=== PATIENT | male | born 1995 | race Caucasian/White ===

== ENCOUNTER 2018-01-20 17:16 | Inpatient (IN) | payer OTHER ==
[~2018-01-20] VITALS: Ht 177.8 cm; Wt 56.0 kg
--- OUTSIDE RECORDS SUMMARY | 2018-01-20 17:19 | XMS REPORT | Clinical Summary ---
Author Author [facility] Address Unknown Phone Unavailable Care Team Providers Care Game Protector Name Role Phone Tee Hines MD PCP Allergies No Known Allergies Medications End Date Status Medication Sig Dispensed Refills Start Date Active budesonide EC (ENTOCORT Take 9 mg by 0 EC) 3 mg 24 hr capsule mouth every morning. Active escitalopram (LEXAPRO) 10 Take 10 mg by 0 MG tablet mouth daily. Active adalimumab (HUMIRA PEN Inject 40 mg 0 [facility] START) 40 under the mg/0.8 mL pen injector skin every 14 kit injection pen kit (fourteen) days. Active Problems Problem Noted Date Crohn's colitis, with rectal bleeding 01/06/2018 Bloody diarrhea 05/13/2016 Encounters Care Team Description Date Type [facility]ty [facility] Crohn's colitis, with rectal bleeding (HCC) (Primary Dx) 01/06/2018 [facility] General Internal Medicine - Encounter 01/08/2018 Jimmy Hollis MD Chronic ulcerative enterocolitis with complication (Primary Dx) 02/14/2017 Lab Lab after 01/19/2017 Immunizations Name Dates Previously Given Next Due FLUCELVAX QUAD PF (0.5mL 01/08/2018 syringe) Social History Date Tobacco Use Types Packs/Day Years Used Never Smoker Smokeless Tobacco: Never Used Tobacco Cessation: Counseling Given: No Alcohol Use Drinks/Week oz/Week Comments No Sex Assigned at Date Recorded Not on file Industry Job Start Date Occupation Not on file Not on file Not on file Travel End Travel History Travel Start No recent travel history available. Last Filed Vital Signs Time Taken Vital Sign Reading 01/08/2018 7:38 AM [employer] [employer] Blood Pressure 105/59 01/08/2018 7:38 AM [employer] [employer] Pulse 64 01/08/2018 7:38 AM [employer] [employer] Temperature 36.2 C (97.2 F) 01/08/2018 7:38 AM [employer] [employer] Respiratory Rate 17 01/08/2018 7:38 AM [employer] [employer] Oxygen Saturation 98% - Inhaled Oxygen - Concentration 01/06/2018 8:53 PM [employer] [employer] Weight 54.8 kg (120 lb 14.4 oz) 01/06/2018 8:53 PM [employer] [employer] Height 177.8 cm (5' 10") 01/06/2018 8:53 PM [employer] [employer] Body Mass Index 17.35 Plan of Treatment Health Maintenance Due Date Last Done Comments MMR VACCINES (1 of - 1998 Standard series) VARICELLA VACCINES (1 of 2010 2 - 2-dose adolescent series) MENINGOCOCCAL VACCINE (1 2013 - 2-dose series) INFLUENZA VACCINE Completed 01/08/2018 HEPATITIS B VACCINES Aged Out No longer eligible based on patient's age to complete this topic IPV VACCINES Aged Out No longer eligible based on patient's age to complete this topic Procedures Comments Procedure Name Priority Date/Time Associated Diagnosis C-REACTIVE PROTEIN Routine 01/08/2018 1:35 PM [facility] SEDIMENTATION RATE Routine 01/08/2018 1:35 PM [employer] [employer] [employer] ESTIMATED GFR Routine 01/07/2018 4:00 AM [employer] [employer] COMPREHENSIVE METABOLIC Routine 01/07/2018 PANEL 4:00 AM [employer] [employer] HC COMPLETE BLD COUNT Routine 01/07/2018 W/AUTO DIFF 4:00 AM [employer] [employer] [facility] GASTROINTESTINAL PANEL Routine 01/06/2018 7:30 PM [employer] [employer] ESTIMATED GFR STAT 01/06/2018 4:03 PM [employer] [employer] LIPASE LEVEL STAT 01/06/2018 4:03 PM [employer] [employer] COMPREHENSIVE METABOLIC STAT 01/06/2018 PANEL 4:03 PM [employer] [employer] TYPE AND SCREEN Routine 01/06/2018 4:03 PM [employer] [employer] PROTHROMBIN TIME WITH INR STAT 01/06/2018 4:03 PM [employer] [employer] HC COMPLETE BLD COUNT STAT 01/06/2018 W/AUTO DIFF 4:03 PM [employer] [employer] [employer] TB T-SPOT Routine 02/14/2017 Chronic ulcerative 12:17 PM [employer] [employer] enterocolitis with complication after 01/19/2017 Results * Sedimentation rate (01/08/2018 1:35 PM SENIOR DIRECTOR [employer]) Sedimentation rate 5 0 - 10 mm/hr [facility] Specimen Blood Performing Organization Address City/[facility] Phone Number [facility] [place] [address] PATHOLOG[address] * C-reactive protein (01/08/2018 1:35 PM SENIOR DIRECT[employer]) CRP <0.30 0.00 - 0.50 mg/dL [facility] Specimen Plasma specimen Performing Organization Address [facility] Phone Number [facility] [place] [address] PATHOLOGY [address] * Estimated GFR (01/07/2018 4:00 AM SENIOR DIRECTOR [employer]IGHT) Only the most recent of 2 results within the time period is included. Estimated GFR >=90 mL/min/1.73 m2 [facility] Comment: HOSPITAL CatergoryUnitsInte rpretation G1 >=90 Normal or high G2 60-89Mildly decreased [id number] Mildly to moderately decreased F3l12-56 Moderately to severely decreased G4 15-29Severely decreased G5 <15Kidney failure The eGFR was calculated using the Chronic Kidney Disease Epidemiology Collaboration (CKD-EPI) equation. Interpretation is based on recommendations of the National Kidney Foundation-Kidney Disease Outcomes Quality Initiative (NKF-KDOQI) published in 2014. Specimen Plasma specimen Performing Organization Address [facility] Phone Number [facility] [address] PATHOLOGY AND [facility] MEDICINE [address] * CBC with platelet and differential (01/07/2018 4:00 AM SENIOR DIRECTOR [employer]IGHT) Only the most recent of 2 results within the time period is included. WBC 7.51 4.50 - 11.00 k/uL [facility] RBC 3.81 (L) 4.40 - 6.00 m/uL [facility] HGB 11.7 (L)Comment: Results 14.0 - 18.0 g/dL [facility] double checked. HOSPITAL HCT 34.9 (L) 41.0 - 51.0 % [facility] MCV 91.6 82.0 - 100.[address] [facility] MCH 30.7 27.0 - 34.[address] [facility] MCHC 33.5 31.0 - 37.0 g/dL [facility] RDW - SD 42.4 37.0 - 55.[address] [facility] MPV 10.1 8.8 - 13.[address] [facility] Platelet count 273 150 - 400 k/uL [facility] Nucleated RBC 0.00 /[address] [facility] Neutrophils 57.4 39.0 - 69.0 % [facility] Lymphocytes 26.9 25.0 - 45.0 % [facility] Monocytes 13.2 (H) 0.0 - 10.0 % [facility] Eosinophils 1.7 0.0 - 5.0 % [facility] Basophils 0.5 0.0 - 1.0 % [facility] Immature granulocytes 0.3Comment: "Immature 0.0 - 1.0 % [facility] granulocytes" (promyelocytes, HOSPITAL myelocytes, metamyelocytes) Specimen Blood Performing Organization Address City/State/Zipcode Phone Number [facility] DEPARTMENT OF [address] [place] [address] PATHOLOGY AND GENOMIC MEDICINE [address] * Comprehensive metabolic panel (01/07/2018 4:00 AM SENIOR DIRECTOR [employer]) Only the most recent of 2 results within the time period is included. Sodium 142 135 - 148 mEq/L [facility] Potassium 3.7 3.5 - 5.0 mEq/L [facility] Chloride 105 98 - 112 mEq/L [facility] CO2 22 (L) 24 - 31 mEq/L [facility] Anion gap 15@ANIO 7 - 15 mEq/L [facility] BUN 8 6 - 20 mg/dL [facility] Creatinine 0.72 0.70 - 1.20 mg/dL [facility] Glucose 77 65 - 99 mg/dL [facility] Calcium 9.0 8.3 - 10.2 mg/dL [facility] Protein 6.3 6.3 - 8.3 g/dL [facility] Comment: HOSPITAL [place] 4.6-7.0 g/dL 1 week 4.4-7.6 g/dL 7 months-1year 5.1-7.3 g/dL 1-2 years5.6-7 .5 g/dL >3 years6.0-8 .0 g/dL 18-150 6.3-8.3 g/dL Albumin 3.5 3.5 - 5.0 g/dL [facility] A/G ratio 1.2 0.7 - 3.[address] [facility] Alkaline phosphatase 59 40 - 129 U/L [facility] AST 15 10 - 50 U/L [facility] ALT 7 5 - 50 U/L [facility] Total bilirubin 0.5 0.0 - 1.2 mg/dL [facility] Specimen Plasma specimen Performing Organization Address [facility] Phone Number [facility] [address] PATHOLOGY AND GENOMIC MEDICINE [address] * Gastrointestinal panel (01/06/2018 7:30 PM SENIOR [employer]) Gastrointestinal panel Negative for all pathogens [facility] tested: HOSPITAL Negative for Salmonella Negative for Campylobacter Negative for Diarrheagenic E coli/Shigella Negative for Shiga-like toxin-producing E coli Negative for Plesiomonas shigelloides Negative for Yersinia enterocolitica Negative for Vibrio species Negative for Clostridium difficile (Toxin A/B) Negative for Cryptosporidium Negative for Giardia lamblia Negative for Cyclospora cayeteanensis Negative for Entamoeba histolytica Negative for Adenovirus F 40/41 Negative for Astrovirus Negative for Norovirus GI/GII Negative for Rotavirus A Negative for Sapovirus Negative for Clostridium difficile toxin Negative for E coli 0157 This real-time PCR assay detects the presence of nucleic acids (RNA or DNA) for the gastrointestinal pathogens listed. A result of "Not-detected" does not exclude the possibility of the presence of one or more pathogens at concentrations less than the detectable limits of the assay. Comment: Specimen Information Specimen Source: Stool Specimen Site: Nonpreserved Specimen Stool - Nonpreserved Performing Organization Address City/[facility] Hospital[facility] Phone Number [facility] DEPARTMENT [place] [phone] PATHOLOGY AND GENOMIC MEDICINE [facility] [address] [place] [address] HOSPITAL * Prothrombin time with INR (01/06/2018 4:03 PM SENIOR DIRECTOR [employer]) Prothrombin time 13.9 11.5 - 14.5 sec [facility] DEPARTMENT OF PATHOLOGY AND GENOMIC MEDICINE INR 1.1 [facility] DEPARTMENT OF Comment: PATHOLOGY AND The International Normalized GENOMIC MEDICINE Ratio (INR) is a therapeutic monitoring tool for patients who are stable on oral anticoagulant therapy. An INR of 2.0-3.0 is suggested for deep vein thrombosis/pulmonary embolism. Specimen Blood Performing Organization Address City/State/Zipcode Phone Number [facility] [address] PATHOLOGY AND GENOMIC MEDICINE * Type and screen (01/06/2018 4:03 PM SENIOR DIRECTOR [employer]) ABO grouping A [facility] DEPARTMENT OF PATHOLOGY AND GENOMIC MEDICINE Rh type NEG [facility] DEPARTMENT OF PATHOLOGY AND GENOMIC MEDICINE Antibody screen (gel) NEG [facility] DEPARTMENT OF PATHOLOGY AND GENOMIC MEDICINE Specimen Blood Performing Organization Address City/[facility] Phone Number [facility] [address] PATHOLOGY AND GENOMIC MEDICINE * Lipase level (01/06/2018 4:03 PM SENIOR DIRECT[employer]) Lipase 18 13 - 60 U/L [facility] DEPARTMENT OF PATHOLOGY AND GENOMIC MEDICINE Specimen Plasma specimen Performing Organization Address City/[facility] [place] [address] PATHOLOGY AND GENOMIC MEDICINE * TB T-SPOT (02/14/2017 12:17 PM SENIOR DIRECTOR [employer]) TB T-SPOT see note [facility] Comment: T-SPOT TUBERCULOSIS Nil Control: 0 Panel A: 0 Panel B: 2 Positive Control: TMTC Result:NEGATIVE NOTE: TMTC INDICATES TOO MANY SPOTS TO COUNT SAT INDICATES THE WELL WAS SATURATED RESULTS INTERPRETATION: RESULTS ARE NEGATIVE WHEN (PANEL A-NIL) OR (PANEL B-NIL) <=4 SPOTS, INCLUDING VALUES LESS THAN ZERO. RESULTS ARE POSITIVE WHEN (PANEL A-NIL) OR (PANEL B-NIL) >=8 SPOTS RESULTS ARE BORDERELINE WHEN EITHER (PANEL A-NIL) OR (PANEL B-NIL)=5,6,0R 7. THE TEST IS INVALID WHEN EITHER OF THE FOLLOWING CONDITIONS IS MET: 1.) THE NIL CONTROL HAS >10 SPOTS 2.) THE MITOGEN (POSITIVE CONTROL) HAS <20 SPOTS AND BOTH (PANEL A-NIL) AND (PANEL B-NIL) <=4 SPOTS. M. TUBERCULOSIS INFECTION UNLIKELY, BUT CANNOT BE EXCLUDED ESPECIALLY WHEN: 1. ANY ILLNESS IS CONSISTENT WITH TB DISEASE. 2. LIKELIHOOD OF PROGRESSION TO DISEASE (e.g. DUE TO IMMUNOSUPPRESSION) IS INCREASED. LIMITATIONS: DIAGNOSING OR EXCLUDING TUBERCULOSIS DISEASE, AND ASSESSING THE PROBABILITY OF LTBI, REQUIRES A COMBINATION OF EPIDEMIOLOGICAL, HISTORICAL, MEDICAL, AND DIAGNOSTIC FINDINGS THAT SHOULD BE TAKEN INTO ACCOUNT WHEN INTERPRETING T-SPOT.TB REFER TO THE MOST RECENT CDC GUIDANCE (HTTP: //[email or web address].GOV/[email or web address]/TB) FOR DETAILED RECOMMENDATIONS ABOUT DIAGNOSING TB INFECTION (INCLUDING DISEASE) AND SELECTING PERSONS FOR TESTING. 1.) A FALSE NEGATIVE RESULT CAN BE CAUSED BY INCORRECT BLOOD SAMPLE COLLECTION OR IMPROPER HANDLING OF THE SPECIMEN, AFFECTING LYMPHOCYTE FUNCTION 2.) THE PERFORMANCE OF T-SPOT.TB HAS NOT BEEN ADEQUATELY EVALUATED WITH SPECIMENS FROM INDIVIDUALS YOUNGER THANAGE 17 YEARS, IN WOMEN, AND IN PATIENTS WITH HEMOPHILIA. 3-) A FALSE POSITIVE RESULT WAS OBTAINED FOR T-SPOT.TB WHEN TESTED IN SUBJECTS WITH M. XENOPI, M. KANSASII, AND M. GORDONAE.WHILE ESAT-6 AND CFP-10 ANTIGENS ARE ABSENT FROM BCG STRAINS OF M. BOVIS AND FROM MOST ENVIRONMENTAL MYCOBACTERIA, IT IS POSSIBLE THAT A POSITIVE T-SPOT.TB RESULT MAY BE DUE TO INFECTION WITH M. KANSASII, M. SZULGAI, M. GORDONAE, OR M. MARINUM. ALTERNATIVE TESTS WOULD BE REQUIRED IF THESE INFECTIONS ARE SUSPECTED. 4.) A NEGATIVE TEST RESULT DOES NOT EXCLUDE THE POSSIBILITY OF EXPOSURE TO, OR INFECTION WITH, M. TUBERCULOSIS. PATIENTS WITH RECENT EXPOSURE TO TB INFECTED INDIVIDUALS EXHIBITING A NEGATIVE T-SPOT.TB RESULT SHOULD BE CONSIDERED FOR RETESTING WITHIN 6 WEEKS OR IF OTHER RELEVANT CLINICAL SYMPTOMS INDICATE POSSIBLE INFECTION. 5.) A POSITIVE TEST RESULT DOES NOT RULE IN ACTIVE TB DISEASE; OTHER TESTS SHOULD BE PERFORMED TO CONFIRM THE DIAGNOSIS OF ACTIVE TB DISEASE SUCH SPUTUM SMEAR AND CULTURE, PCR AND CHEST RADIOGRAPHY. 6.) T-SPOT.TB TEST HAS NOT BEEN EVALUATED IN SUBJECTS WHO HAVE RECEIVED >1 MONTH OF ANTI-TB THERAPY. 7. ) REFRIGERATED AND FROZEN SAMPLES ARE NOT RECOMMENDED FOR USE WITH T=SPOT.TB TEST. Performed by: [facility] Molecular Tuberculosis Laboratory [facility] ([id number]) [place], [place] [address] Specimen Blood Performing Organization Address City/State/Zipcode Phone Number [facility] [address] [place] [address] after 01/19/2017 Insurance Payer Benefit Subscriber ID Type Phone Address Plan / Group AETNA AETNA xxxxxxxxxx HMO HMO,POS,EP O, MC/EC Advance Directives Patient has advance care planning documents, and code status on file. For more i nformation, please contact: [facility] [address] [place] [address] Date Inactivated Comments Code Status Date Activated 05/17/2016 4:48 PM Full Code 05/14/2016 4:10 AM Code Status decision reached by: Patient
[2018-01-20 18:10] LABS: BASOPHILS # (AUTO) 0.1 (0.0-0.1); BASOPHILS % 0.6 % (0.0-1.0); EOSINOPHILS # (AUTO) 0.1 (0.0-0.4); EOSINOPHILS % 0.8 % (0.0-6.0); HEMATOCRIT 40.7 % (38.2-49.6); HEMOGLOBIN 13.9 g/dL (14.0-18.0); LYMPHOCYTES # (AUTO) 1.3 (1.0-3.2); LYMPHOCYTES % 9.4 % (18.0-39.1); MEAN CORPUSCULAR HEMOGLOBIN 30.8 pg (28-32); MEAN CORPUSCULAR HGB CONC 34.2 g/dL (31-35); NEUTROPHILS # (AUTO) 11.2 (2.1-6.9); NEUTROPHILS % 81.5 % (38.7-80.0); PLATELET COUNT 414 x10e3/uL (140-360); RED BLOOD COUNT 4.52 x10e6/uL (4.3-5.7); RED CELL DISTRIBUTION WIDTH 13.5 % (11.7-14.4)
[2018-01-20 18:29] LABS: INR 0.89; PROTHROMBIN TIME 12.9 seconds (11.9-14.5)
[2018-01-20 18:30] LABS: ALANINE AMINOTRANSFERASE 12 IU/L (0-55); ALBUMIN 3.9 g/dL (3.5-5.0); ALKALINE PHOSPHATASE 75 IU/L (40-150); ANION GAP 12.6 mmol/L (8-16); BLOOD UREA NITROGEN 10 mg/dL (7-26); BUN/CREATININE RATIO 13 (6-25); CALCIUM 9.6 mg/dL (8.4-10.2); CARBON DIOXIDE 30 mmol/L (22-29); CHLORIDE 98 mmol/L (98-107); CREATINE KINASE 32 IU/L (30-200); CREATININE, SERUM 0.77 mg/dL (0.72-1.25); EST GLOMERULAR FILTRATION RATE > 60 ML/MIN (60-); GLUCOSE 94 mg/dL (74-118); PARTIAL THROMBOPLASTIN TIME 25.2 seconds (23.8-35.5); POTASSIUM 3.6 mmol/L (3.5-5.1); SODIUM 137 mmol/L (136-145)
[2018-01-20] MEDS ORDERED: SODIUM CHLORIDE 0.9% 1000ML 1,000 ML IV STA (20:14)
[2018-01-20] MEDS ORDERED: METHYLPREDNISOLONE SOD SUCC 125 MG/2ML VIAL IV STA (20:14)
[2018-01-20] MEDS ORDERED: ONDANSETRON HCL INJ 2 MG/ML VIAL IV PRN (21:30)
[2018-01-20] MEDS ORDERED: MORPHINE SULFATE 2 MG/ML SYR IV PRN (21:30)
--- OUTSIDE RECORDS SUMMARY | 2018-01-20 21:33 | XMS REPORT | Clinical Summary ---
Author Author [facility] Address Unknown Phone Unavailable Care Team Providers Care Tilt Tray Driver Name Role Phone Tee Hines MD PCP [...] Description Date Type Specialty [facility] Crohn's colitis, with rectal bleeding (HCC) (Primary Dx) 01/06/2018 [facility] General Internal Medicine - Encounter 01/08/2018 Jimmy [...] Taken Vital Sign Reading 01/08/2018 7:38 AM METAL PICKLING EQUIPMENT OPERATOR Blood Pressure 105/59 01/08/2018 7:38 AM METAL PICKLING EQUIPMENT OPERATOR Pulse 64 01/08/2018 7:38 AM METAL PICKLING EQUIPMENT OPERATOR Temperature 36.2 C (97.2 F) 01/08/2018 7:38 AM METAL PICKLING EQUIPMENT OPERATOR Respiratory Rate 17 01/08/2018 7:38 AM METAL PICKLING EQUIPMENT OPERATOR Oxygen Saturation 98% - Inhaled Oxygen - Concentration 01/06/2018 8:53 PM METAL PICKLING EQUIPMENT OPERATOR Weight 54.8 kg (120 lb 14.4 oz) 01/06/2018 8:53 PM METAL PICKLING EQUIPMENT OPERATOR Height 177.8 cm (5' 10") 01/06/2018 8:53 PM METAL PICKLING EQUIPMENT OPERATOR Body Mass Index 17.35 Plan of Treatment [...] Diagnosis C-REACTIVE PROTEIN Routine 01/08/2018 1:35 PM METAL PICKLING EQUIPMENT OPERATOR SEDIMENTATION RATE Routine 01/08/2018 1:35 PM METAL PICKLING EQUIPMENT OPERATOR ESTIMATED GFR Routine 01/07/2018 4:00 AM METAL PICKLING EQUIPMENT OPERATOR COMPREHENSIVE METABOLIC Routine 01/07/2018 PANEL 4:00 AM METAL PICKLING EQUIPMENT OPERATOR HC COMPLETE BLD COUNT Routine 01/07/2018 W/AUTO DIFF 4:00 AM METAL PICKLING EQUIPMENT OPERATOR GASTROINTESTINAL PANEL Routine 01/06/2018 7:30 PM METAL PICKLING EQUIPMENT OPERATOR ESTIMATED GFR STAT 01/06/2018 4:03 PM METAL PICKLING EQUIPMENT OPERATOR LIPASE LEVEL STAT 01/06/2018 4:03 PM METAL PICKLING EQUIPMENT OPERATOR COMPREHENSIVE METABOLIC STAT 01/06/2018 PANEL 4:03 PM METAL PICKLING EQUIPMENT OPERATOR TYPE AND SCREEN Routine 01/06/2018 4:03 PM METAL PICKLING EQUIPMENT OPERATOR PROTHROMBIN TIME WITH INR STAT 01/06/2018 4:03 PM METAL PICKLING EQUIPMENT OPERATOR HC COMPLETE BLD COUNT STAT 01/06/2018 W/AUTO DIFF 4:03 PM METAL PICKLING EQUIPMENT OPERATOR TB T-SPOT Routine 02/14/2017 Chronic ulcerative 12:17 PM METAL PICKLING EQUIPMENT OPERATOR enterocolitis with complication after 01/19/2017 Results * Sedimentation rate (01/08/2018 1:35 PM METAL PICKLING EQUIPMENT OPERATOR) Sedimentation rate 5 0 - 10 mm/hr [facility] Specimen Blood Performing Organization Address City/[facility] Phone Number [facility] [place] [address] PATHOLOGY [address] * C-reactive protein (01/08/2018 1:35 PM METAL PICKLING EQUIPMENT OPERATOR) CRP <0.30 0.00 - 0.50 mg/dL [facility] Specimen Plasma specimen Performing Organization Address [facility] Phone Number [facility] [place] [address] PATHOLOGY AND [address] * Estimated GFR (01/07/2018 4:00 AM METAL PICKLING EQUIPMENT OPERATOR) Only the most recent of 2 results within the time period is included. Estimated GFR >=90 mL/min/1.73 m2 [facility] Comment: HOSPITAL CatergoryUnitsInte rpretation G1 >=90 Normal or high G2 60-89Mildly decreased U0l20-10 Mildly to moderately decreased A4a12-38 Moderately to severely decreased G4 15-29Severely decreased G5 <15Kidney failure The eGFR was calculated using the Chronic Kidney Disease Epidemiology Collaboration (CKD-EPI) equation. Interpretation is based on recommendations of the National Kidney Foundation-Kidney Disease Outcomes Quality Initiative (NKF-KDOQI) published in 2014. Specimen Plasma specimen Performing Organization Address [facility] Phone Number [facility] [place] [address] PATHOLOGY AND [facility] MEDICINE [address] * CBC with platelet and differential (01/07/2018 4:00 AM METAL PICKLING EQUIPMENT OPERATOR) Only the most recent of 2 results within the time period is included. WBC 7.51 4.50 - 11.00 k/uL [facility] RBC 3.81 (L) 4.40 - 6.00 m/uL [facility] HGB 11.7 (L)Comment: Results 14.0 - 18.0 g/dL [facility] double checked. HOSPITAL HCT 34.9 (L) 41.0 - 51.0 % [facility] MCV 91.6 82.0 - 100.0 fL [facility] MCH 30.7 27.0 - 34.0 pg [facility] MCHC 33.5 31.0 - 37.0 g/dL [facility] RDW - SD 42.4 37.0 - 55.0 fL [facility] MPV 10.1 8.8 - 13.2 fL [facility] Platelet count 273 150 - 400 k/uL [facility] Nucleated RBC 0.00 /100 WBC [facility] Neutrophils 57.4 39.0 - 69.0 % [facility] Lymphocytes 26.9 25.0 - 45.0 % [facility] Monocytes 13.2 (H) 0.0 - 10.0 % [facility] Eosinophils 1.7 0.0 - 5.0 % [facility] Basophils 0.5 0.0 - 1.0 % [facility] Immature granulocytes 0.3Comment: "Immature 0.0 - 1.0 % [facility] granulocytes" (promyelocytes, HOSPITAL myelocytes, metamyelocytes) Specimen Blood Performing Organization Address City/State/Zipcode Phone Number [facility] DEPARTMENT OF [address] [place] [address] PATHOLOGY AND GENOMIC MEDICINE [address] * Comprehensive metabolic panel (01/07/2018 4:00 AM METAL PICKLING EQUIPMENT OPERATOR) Only the most recent of 2 results within the time period is included. Sodium 142 135 - 148 mEq/L [facility] Potassium 3.7 3.5 - 5.0 mEq/L [facility] Chloride 105 98 - 112 mEq/L [facility] CO2 22 (L) 24 - 31 mEq/L [facility] Anion gap 15@ANIO 7 - 15 mEq/L [facility] BUN 8 6 - 20 mg/dL [facility] Creatinine 0.72 0.70 - 1.20 mg/dL [facility] Glucose 77 65 - 99 mg/dL [facility] Calcium 9.0 8.3 - 10.2 mg/dL [facility] Protein 6.3 6.3 - 8.3 g/dL [facility] Comment: HOSPITAL [place] 4.6-7.0 g/dL 1 week 4.4-7.6 g/dL 7 months-1year 5.1-7.3 g/dL 1-2 years5.6-7 .5 g/dL >3 years6.0-8 .0 g/dL 18-150 6.3-8.3 g/dL Albumin 3.5 3.5 - 5.0 g/dL [facility] A/G ratio 1.2 0.7 - 3.8 [facility] Alkaline phosphatase 59 40 - 129 U/L [facility] AST 15 10 - 50 U/L [facility] ALT 7 5 - 50 U/L [facility] Total bilirubin 0.5 0.0 - 1.2 mg/dL [facility] Specimen Plasma specimen Performing Organization Address [facility] Phone Number [facility] [place] [address] PATHOLOGY AND GENOMIC MEDICINE [address] * Gastrointestinal panel (01/06/2018 7:30 PM METAL PICKLING EQUIPMENT OPERATOR) Gastrointestinal panel Negative for all pathogens [facility] tested: HOSPITAL Negative for Salmonella Negative for [...] Specimen Stool - Nonpreserved Performing Organization Address City/[facility] Phone Number [facility] DEPARTMENT [place] [phone] PATHOLOGY AND GENOMIC MEDICINE [facility] [address] [place] [address] HOSPITAL * Prothrombin time with INR (01/06/2018 4:03 PM METAL PICKLING EQUIPMENT OPERATOR) Prothrombin time 13.9 11.5 - 14.5 sec [facility] DEPARTMENT OF PATHOLOGY AND GENOMIC MEDICINE INR 1.1 [facility] DEPARTMENT OF Comment: PATHOLOGY AND The International Normalized GENOMIC MEDICINE Ratio (INR) is a therapeutic monitoring tool for patients who are stable on oral anticoagulant therapy. An INR of 2.0-3.0 is suggested for deep vein thrombosis/pulmonary embolism. Specimen Blood Performing Organization Address City/State/Zipcode Phone Number [facility] [place] [address] PATHOLOGY AND GENOMIC MEDICINE * Type and screen (01/06/2018 4:03 PM METAL PICKLING EQUIPMENT OPERATOR) ABO grouping A [facility] DEPARTMENT OF PATHOLOGY AND GENOMIC MEDICINE Rh type NEG [facility] DEPARTMENT OF PATHOLOGY AND GENOMIC MEDICINE Antibody screen (gel) NEG [facility] DEPARTMENT OF PATHOLOGY AND GENOMIC MEDICINE Specimen Blood Performing Organization Address City/[facility] Phone Number [facility] [place] [address] PATHOLOGY AND GENOMIC MEDICINE * Lipase level (01/06/2018 4:03 PM METAL PICKLING EQUIPMENT OPERATOR) Lipase 18 13 - 60 U/L [facility] DEPARTMENT OF PATHOLOGY AND GENOMIC MEDICINE Specimen Plasma specimen Performing Organization Address City/[facility] [place] [address] PATHOLOGY AND GENOMIC MEDICINE * TB T-SPOT (02/14/2017 12:17 PM METAL PICKLING EQUIPMENT OPERATOR) TB T-SPOT see note [facility] Comment: [...] WITH T=SPOT.TB TEST. Performed by: [facility] Molecular Tuberculosis Laboratory [facility] ([id number]) [place], [place] [address] Specimen Blood Performing Organization Address City/State/Zipcode Phone Number [facility] [address] [place] [address] after 01/19/2017 Insurance Payer Benefit Subscriber ID Type Phone Address Plan / Group AETNA AETNA xxxxxxxxxx HMO HMO,[id number] O, MC/EC Advance Directives Patient has advance care planning documents, and code status on file. For more i nformation, please contact: [facility] [address] [place] [address] Date Inactivated Comments Code Status Date Activated 05/17/2016 4:48 PM Full Code 05/14/2016 4:10 AM Code Status decision reached by: Patient
[2018-01-20] MEDS: METRONIDAZOLE 500MG/NS 100ML IV SCH (22:00)
[2018-01-20] MEDS: METHYLPREDNISOLONE SOD SUCC 40 MG/ML VIAL IV SCH (22:03)
[2018-01-20] MEDS: SODIUM CHLORIDE 0.9% 1000ML 1,000 ML IV SCH (22:09)
[2018-01-21] MEDS: METRONIDAZOLE 500MG/NS 100ML IV SCH ×3 (04:15→17:50)
[2018-01-21 04:31] LABS: BASOPHILS % 0.3 % (0.0-1.0); HEMATOCRIT 34.5 % (38.2-49.6); HEMOGLOBIN 11.9 g/dL (14.0-18.0); LYMPHOCYTES # (AUTO) 1.3 (1.0-3.2); LYMPHOCYTES % 12.6 % (18.0-39.1); MEAN CORPUSCULAR HEMOGLOBIN 30.7 pg (28-32); MEAN CORPUSCULAR HGB CONC 34.5 g/dL (31-35); MEAN CORPUSCULAR VOLUME 88.9 fL (81-99); MONOCYTES # (AUTO) 0.2 (0.2-0.8); MONOCYTES % 1.5 % (4.4-11.3); NEUTROPHILS # (AUTO) 8.6 (2.1-6.9); PLATELET COUNT 341 x10e3/uL (140-360); RED BLOOD COUNT 3.88 x10e6/uL (4.3-5.7); RED CELL DISTRIBUTION WIDTH 13.6 % (11.7-14.4)
[2018-01-21 04:48] LABS: ALANINE AMINOTRANSFERASE 10 IU/L (0-55); ALKALINE PHOSPHATASE 59 IU/L (40-150); ANION GAP 11.2 mmol/L (8-16); BLOOD UREA NITROGEN 8 mg/dL (7-26); BUN/CREATININE RATIO 13 (6-25); CALCIUM 8.9 mg/dL (8.4-10.2); CARBON DIOXIDE 25 mmol/L (22-29); CHLORIDE 104 mmol/L (98-107); CREATININE, SERUM 0.61 mg/dL (0.72-1.25); EST GLOMERULAR FILTRATION RATE > 60 ML/MIN (60-); GLUCOSE 129 mg/dL (74-118); LIPASE 10 U/L (8-78); POTASSIUM 4.2 mmol/L (3.5-5.1); SODIUM 136 mmol/L (136-145)
[2018-01-21 04:59] LABS: ALBUMIN 3.1 g/dL (3.5-5.0)
[2018-01-21] MEDS: METHYLPREDNISOLONE SOD SUCC 40 MG/ML VIAL IV SCH ×3 (07:35→21:59)
[2018-01-21] MEDS: SODIUM CHLORIDE 0.9% 1000ML 1,000 ML IV SCH ×2 (07:35→16:00)
--- NOTE | 2018-01-21 09:51 | History and Physical ---
REASON FOR ADMISSION 1. GI bleed. 2. Crohn's disease. HISTORY OF PRESENT ILLNESS: Patient is a young gentleman with history of Crohn's disease, having about a 2-week attack of blood per bowel movement, bright red, Crohn's, abdominal pain and is not responding to home medications. PAST MEDICAL HISTORY: Crohn's. MEDICATIONS: See MAR. ALLERGIES: NONE. SOCIAL HISTORY: Nondrinker and nonsmoker. Lives at home with his mother and father. FAMILY HISTORY: Inflammatory bowel disease. PHYSICAL EXAMINATION VITAL SIGNS: Temperature 98.6, blood pressure 112/76, pulse 74, and sats 98% on room air. GENERAL: In no apparent distress, lying in bed. NECK: Supple. CARDIOVASCULAR: Regular rate and rhythm. LUNGS: Clear to auscultation bilaterally. ABDOMEN: Good bowel sounds. Soft and nontender. EXTREMITIES: No clubbing or cyanosis. NEUROLOGIC: Nonfocal. ASSESSMENT AND PLAN 1. Gastrointestinal bleed. We will continue with current care and consult GI. 2. Crohn's disease. We will continue with steroids. 3. Anemia. We will continue to monitor. 4. Abdominal pain. Continue current care. Please see hospital chart for full details. Job#: [id number] PEDRO LUIS
[2018-01-21 10:30] LABS: BAND NEUTROPHILS % (MANUAL) 1 %; LYMPHOCYTES % (MANUAL) 10 % (19-48); MONOCYTES % (MANUAL) 2 % (3.4-9.0); NEUTROPHILS % (MANUAL) 87 % (40-74); PLATELET MORPHOLOGY COMMENT NORMAL; RBC MORPHOLOGY COMMENT NORMAL
[2018-01-21 10:31] LABS: PLATELET ESTIMATE ADEQUATE
[2018-01-21] MEDS ORDERED: ESCITALOPRAM OX10 MG PO (14:33)
[2018-01-21] MEDS ORDERED: HUMIRA20 MG/0.4 (14:33)
[2018-01-21] MEDS ORDERED: BUDESONIDE EC3 MG PO (14:33)
[2018-01-21 16:00] VITALS: BP 125/70
[2018-01-21 16:54] VITALS: BP 125/70
[2018-01-21] MEDS ORDERED: PREDNISONE20 MG PO (17:03)
[2018-01-21 20:00] VITALS: BP 127/76
--- NOTE | 2018-01-21 21:09 | Consultation ---
DATE OF CONSULTATION: January 21, 2018 REASON FOR CONSULTATION: History of Crohn's disease. HISTORY OF PRESENT ILLNESS: Ant is a pleasant 22-year-old male apparently diagnosed with inflammatory bowel disease couple of years ago. Initially apparently, it was told there was ulcerative colitis; most recently was told, it was Crohn's disease, who comes into the emergency room, complaining of persistent rectal bleeding. The patient actually has been evaluated by [facility], most recent colonoscopy done in september of this year was available to me to visualize and it showed terminal ileal disease with small erosions as well as probably some mild rectal disease. He was recently discharged from [facility], [place] where he was admitted for rectal bleeding and abdominal pain. Symptoms recurred over the last 48 hours and therefore, consult in this emergency room. He denies any fever, chills, vomiting, weight loss, or any other symptoms. His current medical regimen includes budesonide as well as Humira which apparently high dose given injections once a week. PAST MEDICAL HISTORY: As in HPI. FAMILY HISTORY: Significant for inflammatory bowel disease in his brother. REVIEW OF SYSTEMS CONSTITUTIONAL: Denies any fever or chills. CARDIAC: Denies chest pain. PULMONARY: Denies any wheezing. Rest of review of system is as in HPI. ALLERGIES: NO APPARENT DRUG ALLERGY. PHYSICAL EXAMINATION VITAL SIGNS: All within normal limits. GENERAL: Pleasant young male, in no distress. HEENT: Unremarkable. NECK: Supple. LUNGS: Clear. HEART: Regular rate and rhythm. ABDOMEN: Soft and nontender. No obvious hepatosplenomegaly. No rebound, no guarding. Bowel sounds appeared to be normal. RECTAL: Differed. EXTREMITIES: Without clubbing, cyanosis, or edema. NEUROLOGICAL: Intact. LABORATORY DATA: On admission, white count was 13,000, repeat white count today was 10,600, hemoglobin 11.9, hematocrit 34.5, platelet count 341, differential with left mild shift. Blood chemistry today, electrolytes were normal. BUN and creatinine were normal. Liver function tests were normal. Lipase was normal. Albumin was 3.1. PT and INR were unremarkable. ASSESSMENT: Young male admitted with rectal bleeding, with history of inflammatory bowel disease, seems to be Crohn''ss disease, based on recent endoscopic pictures. Pathology is not available to me. Interestingly, he does complain of some rectal bleeding and at least, colonoscopic pictures of his recent colonoscopy do not really reveal severe rectal disease to explain the rectal pain or hematochezia. I suspect we could be deal with the rectal fissure as well as we could be done with hemorrhoids bleed with Crohn's disease probably related to the ileal disease. He has had apparently recent CT scan; therefore, I feel that at this point, repeat CT scan is not mandatory. PLAN 1. Agree with current management with Solu-Medrol and Flagyl. 2. Will add Canasa suppositories. 3. Upper GI with small bowel followthrough. 4. Will change diet to full liquid and advance as tolerated. 5. Will check C-reactive protein, sed rate, and stool calprotectin. Job#: [id number] PEDRO LUIS
[2018-01-21 21:59] VITALS: BP 127/76
[2018-01-21] MEDS: MESALAMINE 1,000 MG SUPP RC SCH (23:59)
[2018-01-22] VITALS (9 sets, daily range): BP systolic 105–136; BP diastolic 56–90
[2018-01-22] MEDS: SODIUM CHLORIDE 0.9% 1000ML 1,000 ML IV SCH ×4 (00:41→22:48)
[2018-01-22] MEDS: METRONIDAZOLE 500MG/NS 100ML IV SCH ×5 (00:50→23:37)
[2018-01-22 06:13] LABS: BASOPHILS # (AUTO) 0.1 (0.0-0.1); BASOPHILS % 0.5 % (0.0-1.0); HEMATOCRIT 33.1 % (38.2-49.6); HEMOGLOBIN 11.3 g/dL (14.0-18.0); LYMPHOCYTES # (AUTO) 1.2 (1.0-3.2); LYMPHOCYTES % 8.2 % (18.0-39.1); MEAN CORPUSCULAR HEMOGLOBIN 30.9 pg (28-32); MEAN CORPUSCULAR HGB CONC 34.1 g/dL (31-35); MEAN CORPUSCULAR VOLUME 90.4 fL (81-99); MONOCYTES # (AUTO) 1.8 (0.2-0.8); MONOCYTES % 12.3 % (4.4-11.3); NEUTROPHILS # (AUTO) 11.7 (2.1-6.9); NEUTROPHILS % 78.4 % (38.7-80.0); PLATELET COUNT 329 x10e3/uL (140-360); RED BLOOD COUNT 3.66 x10e6/uL (4.3-5.7); RED CELL DISTRIBUTION WIDTH 13.5 % (11.7-14.4)
[2018-01-22] MEDS: METHYLPREDNISOLONE SOD SUCC 40 MG/ML VIAL IV SCH ×3 (06:24→22:48)
[2018-01-22 06:58] LABS: ERYTHROCYTE SEDIMENTATION RATE 9 mm/hr (0-13)
[2018-01-22 12:17] LABS: BAND NEUTROPHILS % (MANUAL) 3 %; HOWELL-JOLLY BODIES FEW; LYMPHOCYTES % (MANUAL) 9 % (19-48); MONOCYTES % (MANUAL) 14 % (3.4-9.0); NEUTROPHILS % (MANUAL) 70 % (40-74); PLATELET ESTIMATE ADEQUATE; PLATELET MORPHOLOGY COMMENT NORMAL; RBC MORPHOLOGY COMMENT NORMAL
--- NOTE | 2018-01-22 13:58 | Diagnostic Imaging Report ---
PROCEDURE: X-RAY UPPER GI SERIES WITH SMALL BOWEL FOLLOW-THROUGH COMPARISON: None. INDICATIONS: CROHNS DISEASE FINDINGS: The patient was given air crystals, thick barium and thin barium to drink in upright and prone positions. Multiple images of the esophagus, stomach and duodenum were obtained. The patient was given additional barium to drink and sequential images of the abdomen were obtained through 1 hour and 20 minutes. Spot images of the small bowel and terminal ileum were then obtained. The esophagus is normal in appearance without evidence of dysmotility, stricture or mucosal irregularity. No reflux was visualized during the examination. The stomach and duodenum are normal without evidence of intrinsic mucosal or extrinsic abnormality. Duodenal bulb is normal. Small bowel motility and caliber are normal. There is no evidence of mass or mucosal abnormality. The terminal ileum is normal. There is a small cecal diverticulum. Contrast fills a small appendix. Fluoroscopy time: 2 minutes Total dose: 15.243 mGy-cm CONCLUSION: Normal Upper GI Series and small bowel follow-through. Justice Pandey D.O. Dictated by: Justice Pandey D.O. on 01/22/2018 at 14:08 Electronically approved by: Justice Pandey D.O. on 01/22/2018 at 14:08
[2018-01-22] MEDS: MESALAMINE 1,000 MG SUPP RC SCH (22:48)
[2018-01-23] VITALS (8 sets, daily range): BP systolic 100–119; BP diastolic 50–69
[2018-01-23] MEDS: SODIUM CHLORIDE 0.9% 1000ML 1,000 ML IV SCH ×3 (05:24→21:24)
[2018-01-23] MEDS: METRONIDAZOLE 500MG/NS 100ML IV SCH ×4 (05:25→23:54)
[2018-01-23] MEDS: METHYLPREDNISOLONE SOD SUCC 40 MG/ML VIAL IV SCH ×3 (05:25→22:21)
[2018-01-23] MEDS ORDERED: ACETAMINOPHEN 325 MG TAB PO PRN (16:30)
[2018-01-23] MEDS: MESALAMINE 1,000 MG SUPP RC SCH (22:21)
[2018-01-24] VITALS (7 sets, daily range): BP systolic 110–124; BP diastolic 56–75
[2018-01-24] MEDS: SODIUM CHLORIDE 0.9% 1000ML 1,000 ML IV SCH ×3 (05:24→20:33)
[2018-01-24] MEDS: METRONIDAZOLE 500MG/NS 100ML IV SCH ×3 (05:33→17:45)
[2018-01-24] MEDS: METHYLPREDNISOLONE SOD SUCC 40 MG/ML VIAL IV SCH ×3 (05:33→20:33)
[2018-01-24 05:57] LABS: BASOPHILS # (AUTO) 0.1 (0.0-0.1); BASOPHILS % 0.4 % (0.0-1.0); HEMATOCRIT 34.5 % (38.2-49.6); HEMOGLOBIN 11.7 g/dL (14.0-18.0); LYMPHOCYTES # (AUTO) 1.4 (1.0-3.2); LYMPHOCYTES % 10.5 % (18.0-39.1); MEAN CORPUSCULAR HEMOGLOBIN 30.5 pg (28-32); MEAN CORPUSCULAR HGB CONC 33.9 g/dL (31-35); MEAN CORPUSCULAR VOLUME 89.8 fL (81-99); MONOCYTES # (AUTO) 0.9 (0.2-0.8); MONOCYTES % 6.4 % (4.4-11.3); NEUTROPHILS % 81.9 % (38.7-80.0); PLATELET COUNT 336 x10e3/uL (140-360); RED BLOOD COUNT 3.84 x10e6/uL (4.3-5.7); RED CELL DISTRIBUTION WIDTH 13.7 % (11.7-14.4)
[2018-01-24] MEDS ORDERED: METHYLPREDNISOLONE SOD SUCC 125 MG/2ML VIAL IV SCH (06:00)
[2018-01-24 06:15] LABS: ALANINE AMINOTRANSFERASE 8 IU/L (0-55); ALBUMIN 2.8 g/dL (3.5-5.0); ALKALINE PHOSPHATASE 50 IU/L (40-150); ANION GAP 9.9 mmol/L (8-16); BLOOD UREA NITROGEN 9 mg/dL (7-26); BUN/CREATININE RATIO 15 (6-25); CALCIUM 8.5 mg/dL (8.4-10.2); CARBON DIOXIDE 25 mmol/L (22-29); CHLORIDE 104 mmol/L (98-107); EST GLOMERULAR FILTRATION RATE > 60 ML/MIN (60-); GLUCOSE 112 mg/dL (74-118); POTASSIUM 3.9 mmol/L (3.5-5.1); SODIUM 135 mmol/L (136-145)
[2018-01-24] MEDS: ESCITALOPRAM OXALATE 10 MG TAB PO SCH (13:32)
[2018-01-24] MEDS: MESALAMINE 1,000 MG SUPP RC SCH (20:33)
[2018-01-25] VITALS: BP 117/64
[2018-01-25] MEDS: METRONIDAZOLE 500MG/NS 100ML IV SCH ×2 (00:16→06:13)
[2018-01-25 04:00] VITALS: BP 105/57
[2018-01-25] MEDS: SODIUM CHLORIDE 0.9% 1000ML 1,000 ML IV SCH (06:13)
[2018-01-25] MEDS: METHYLPREDNISOLONE SOD SUCC 40 MG/ML VIAL IV SCH (06:13)
[2018-01-25 08:28] VITALS: BP 118/59
[2018-01-25 10:00] VITALS: BP 129/69
[2018-01-25] MEDS: ESCITALOPRAM OXALATE 10 MG TAB PO SCH (10:00)
[2018-01-25] MEDS ORDERED: FLAGYL250 MG PO (11:52)
[2018-01-25] MEDS ORDERED: PREDNISONE20 MG PO (11:53)
[2018-01-25] MEDS ORDERED: CANASA1000 MG PR (11:54)
[2018-01-25 12:35] VITALS: BP 123/71
== END 2018-01-25 12:39 | disposition home or self-care (01) | DRG 386 ==
LOC: ER 17:16 → ERHOLD 21:30 → MED/SURG 01-21 16:12
PROVIDERS: ADMIT Internal Medicine; ATTEND Internal Medicine
DX: K50.111 Crohn's disease of large intestine with rectal bleeding (principal); K92.2 Gastrointestinal hemorrhage, unspecified; D64.9 Anemia, unspecified; K60.2 Anal fissure, unspecified
CPT/HCPCS: 36415; 74249; 80053; 82550; 82553; 83690; 83993; 84484; 85025; 85610; 85651; 85730; 86140; 99284; J2920; J2930; J7030